=== PATIENT | female | born 1995 | race Caucasian/White ===

== ENCOUNTER 2022-05-28 14:50 | Outpatient (CLI) | payer OTHER ==
--- NOTE | 2022-05-28 16:00 | XRAY Report ---
PROCEDURE: Shoulder 3 View LT INDICATIONS: PECTORALIS TENDINTIS TECHNIQUE: 3 views of the shoulder were acquired. COMPARISON: None. FINDINGS: Bones: No acute fractures or dislocations. No suspicious bony lesions. Visualized ribs appear inta ct. Soft tissues: No suspicious soft tissue calcifications. IMPRESSION: No osseous abnormality. If symptoms persist or there is continued clinical concern, furt her evaluation with MRI or CT may be helpful. Reviewed by: River Warner MD on 05/28/2022 3:59 PM PDT Approved by: River Warner MD on 05/28/2022 3:59 PM PDT Station ID: [id number]
== END 2022-05-28 14:51 | disposition home or self-care (01) ==
LOC: DI 14:50
PROVIDERS: ATTEND Registered Nurse
DX: M77.8 Other enthesopathies, not elsewhere classified (principal); M25.512 Pain in left shoulder